=== PATIENT | male | born 1930 | race Caucasian/White ===

== ENCOUNTER 2016-05-31 10:26 | Outpatient (CLI) | payer MEDICARE, BC ==
[2016-05-31 12:24] LABS: Bilirubin Negative (Negative); Blood, Urine Negative (Negative); Glucose, Urine (Dipstick) Negative (Negative); Ketone, Urine Negative (Negative); Nitrite Negative (Negative); Protein, Urine (Dipstick) Negative (Neg-Trace); Urobilinogen 0.2 mg/dL (0.2-1.0)
[2016-05-31 12:53] LABS: Bacteria/HPF Rare-Few HPF (None Seen); RBC/HPF 0-3 HPF (0-3); Squamous Epithelial 0-3 HPF (0-3); WBC/HPF 0-3 HPF (0-3)
== END 2016-05-31 10:27 | disposition home or self-care (01) ==
LOC: BURLAB 10:26
PROVIDERS: ATTEND Urology
DX: N40.1 Benign prostatic hyperplasia with lower urinary tract symptoms (principal); R35.0 Frequency of micturition
CPT/HCPCS: 81001; 87086

== ENCOUNTER 2016-10-10 11:23 | Outpatient (CLI) | payer MEDICARE, BC ==
[2016-10-10 12:13] LABS: ALT (SGPT) 16 U/L (8-55); AST (SGOT) 18 U/L (5-34); Albumin 4.2 g/dL (3.4-4.8); Alkaline Phosphatase 80 U/L (40-150); Anion Gap 16 mmol/L (10-20); BUN (Urea Nitrogen) 10 mg/dL (8.4-25.7); Bilirubin, Total 0.8 mg/dL (0.2-1.2); Calc. Creatinine Clearance 0 mL/min (70-130); Calcium 9.2 mg/dL (7.8-10.44); Carbon Dioxide 29 mmol/L (23-31); Cardiac Risk 3.6 (Less than 4.5); Chloride 101 mmol/L (98-107); Cholesterol 142 mg/dl (< 200 Desired); Estimated GFR-MDRD 78; Glucose 102 mg/dL (83-110); HDL Cholesterol 39 mg/dL (>60 Neg Risk); LDL Cholesterol, Calculated 37 mg/dL; Potassium 3.7 mmol/L (3.5-5.1); Protein, Total 7.2 g/dL (5.8-8.1); Sodium 142 mmol/L (136-145); Triglycerides 331 mg/dL (Less than 150)
[2016-10-10 12:28] LABS: #Basophils 0.1 thou/uL (0.0-0.2); #Eosinphils 0.3 thou/uL (0.0-0.7); #Lymphocytes 2.9 thou/uL (1.20-3.40); #Monocytes 0.9 thou/uL (0.11-0.59); #Neutrophils 5.1 thou/uL (1.40-6.50); %Eosinophils 3.7 % (0.0-10.0); %Lymphocytes 30.8 % (21.0-51.0); %Monocytes 9.6 % (0.0-10.0); %Neutrophils 54.9 % (42.0-75.0); Hemoglobin 15.3 g/dL (14.0-18.0); Mean Corpuscular HGB CONC 34.3 g/dL (32.0-36.0); Mean Corpuscular Hemoglobin 33.8 pg (27.0-31.0); Mean Corpuscular Volume 98.7 fl (80.0-94.0); Mean Platelet Volume 9.7 fL (7.4-10.4); Platelet Count 170 thou/uL (130-400); RBC Distribution Width 13.1 % (11.5-14.5); Red Blood Cell (RBC) Count 4.52 mill/uL (4.70-6.10); White Blood Cell (WBC) Count 9.3 thou/uL (4.8-10.8)
== END 2016-10-10 11:24 | disposition home or self-care (01) ==
LOC: HPCALD 11:23
PROVIDERS: ATTEND Family Medicine
DX: E78.2 Mixed hyperlipidemia (principal); E11.9 Type 2 diabetes mellitus without complications; I10 Essential (primary) hypertension
CPT/HCPCS: 36415; 80053; 80061; 83036; 85025

== ENCOUNTER 2017-01-31 15:11 | Outpatient (CLI) | payer MEDICARE, BC ==
--- NOTE | 2017-01-31 17:54 | RAD ---
LEFT KNEE THREE VIEWS: 01/31/17 There is some mild medial joint space narrowing. Osteophytes are present. There is minimal bony scle rosis. Some patellofemoral osteophytes are present. No large joint effusion, fracture or area of bon y destruction was seen. IMPRESSION: Mild degenerative changes. POS: HOME
== END 2017-01-31 15:12 | disposition home or self-care (01) ==
LOC: BURRAD 15:11
PROVIDERS: ATTEND Family Medicine
DX: M25.562 Pain in left knee (principal); M17.12 Unilateral primary osteoarthritis, left knee

== ENCOUNTER 2018-01-29 07:42 | Outpatient (CLI) | payer MEDICARE, BC ==
--- NOTE | 2018-01-29 19:27 | CT ---
CT ABDOMEN AND PELVIS WITH CONTRAST: 01/29/[address] of the abdomen and pelvis was performed for evaluation of left lower quadrant pain. Axial s lices were acquired after giving oral and IV contrast. Coronal and sagittal reconstructions were subs equently done. The lung bases are clear except for some minor dependent atelectasis. There seems to be some pleural thickening in the lung bases, particularly the right. There are no large effusions. The liver is normal in size. There is a 1.5 cm hyperdense mass in the left lobe. The odds are highest that it is a benign hemangioma, though other entities are possible. The spleen, pancreas, adrenal gl ands, and kidneys are unremarkable. No stones were seen in the gallbladder. The aorta is calcified bu t shows no aneurysm. There is no sign of bowel obstruction. There was no specific abnormality of the colon to show a caus e for left lower pain. Some of the proximal loops of jejunum have slight wall thickening. This can so metimes be seen in enteritis. No free air or free fluid was seen. CT of the pelvis showed no pelvic masses, fluid collections, or inflammatory changes. The patient's p rostate is quite large, 6.2 cm in diameter. It is very inhomogeneous in texture. Neoplasia is not rul ed out. Small fat filled inguinal hernias are seen bilaterally. There are very extensive degenerative changes in this patient's spine. Severe central canal stenosis is particularly noted at L2-L3 with foraminal stenosis seen at multiple levels. IMPRESSION: 1. No cause for left lower quadrant pain seen. 2. Mild wall thickening of the proximal jejunum. Consider possible enteritis in the proper ashley xt. 3. 1.5 cm hyperdense mass in the left lobe of the liver. More likely a hemangioma than not, but other entities are possible. 4. Marked enlargement and inhomogeneity of the prostate. This may bear further workup. 5. Severe degenerative changes of the lumbar spine with severe central canal stenosis particular ly at L2-L3. Code T. POS: HOME
== END 2018-01-29 07:43 | disposition home or self-care (01) ==
LOC: BURCT 07:42
PROVIDERS: ATTEND Family Medicine
DX: Z01.812 Encounter for preprocedural laboratory examination (principal); R10.32 Left lower quadrant pain; K63.89 Other specified diseases of intestine; R16.0 Hepatomegaly, not elsewhere classified; N40.0 Benign prostatic hyperplasia without lower urinary tract symptoms; M47.896 Other spondylosis, lumbar region; M48.061 Spinal stenosis, lumbar region without neurogenic claudication
CPT/HCPCS: 36415; 74177; 82565

== ENCOUNTER 2018-04-28 10:51 | Outpatient (CLI) | payer MEDICARE, BC ==
--- NOTE | 2018-04-28 13:10 | RAD ---
FRONTAL RADIOGRAPH ABDOMEN: Date: 04/28/18 HISTORY: Epigastric pain for 2 months. FINDINGS: There is prominent degenerative change noted within the lumbar spine, most significant at the L2-3 le layne. The bowel gas pattern appears nonobstructed. Supine imaging is provided, limiting assessment for free intraperitoneal air and small bowel obstruction. IMPRESSION: Nonobstructed bowel gas pattern. POS: [facility]
== END 2018-04-28 10:52 | disposition home or self-care (01) ==
LOC: BURRAD 10:51
PROVIDERS: ATTEND Family Medicine
DX: R10.13 Epigastric pain (principal)
CPT/HCPCS: 74018

== ENCOUNTER 2018-08-12 10:47 | Outpatient (CLI) | payer MEDICARE, BC ==
--- NOTE | 2018-08-12 11:48 | CT ---
CT HEAD WITHOUT CONTRAST: History: Multiple axial tomograms were obtained through the head without IV enhancement. Indications: Senile degeneration of brain. Worsening memory loss and speech difficulty. FINDINGS: Ventricles have normal size and position. Mild cortical volume loss. No mass, infarct or hemorrhage. Mild sclerotic ischemic change. Sinuses and mastoids are clear. IMPRESSION: No acute finding. POS: [facility]
== END 2018-08-12 10:48 | disposition home or self-care (01) ==
LOC: BURCT 10:47
PROVIDERS: ATTEND Psychiatry & Neurology Neurology
DX: G31.1 Senile degeneration of brain, not elsewhere classified (principal)
CPT/HCPCS: 70450

== ENCOUNTER 2019-09-15 10:52 | Emergency (ER) | payer MEDICARE, BC ==
--- NOTE | 2019-09-15 11:52 | CT ---
CT OF THE BRAIN WITHOUT CONTRAST: Date: 09/15/[address] was compared with the 08/12/2018 study done last year. There has been no new findings of concern. The ventricles are normal in size for age and atrophy. No intracranial bleeding or extra-axial hematoma seen. No sign of mass, edema, or acute stroke. Minor hy polucency in the deep white matter is to be expected and has not changed over the past year. The visi ble paranasal sinuses are clear and the skull appears intact. IMPRESSION: No acute intracranial findings. Preliminary report called to Raf in the ER at 1142 hours on 09/15/2019. CODE CR. POS: HOME
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
== END 2019-09-15 12:10 | disposition home or self-care (01) ==
LOC: BURERS 10:52
DX: S70.01XA Contusion of right hip, initial encounter (principal); M54.5 Low back pain; E11.9 Type 2 diabetes mellitus without complications; I10 Essential (primary) hypertension; F03.90 Unspecified dementia, unspecified severity, without behavioral disturbance, psychotic disturbance, mood disturbance, and anxiety; Z79.899 Other long term (current) drug therapy; W18.30XA Fall on same level, unspecified, initial encounter
CPT/HCPCS: 70450; 74176